=== PATIENT | male | born 1990 | race Caucasian/White ===

== ENCOUNTER 2017-03-30 13:07 | Emergency (ER) | payer BC ==
[~2017-03-30] VITALS: Ht 193 cm; Wt 77.1 kg
[~2017-03-30 13:07] MED LIST: CODACE30 PO; CRUTCH4 USE; IBUP200 PO; IBUP800 PO; NAPR500 PO; PENVK250 PO; PENVK500 PO; RXHYDACE PO; TRAM50 PO; Veetids 500500 MG PO
== END 2017-03-30 13:45 | disposition home or self-care (01) ==
LOC: ER 13:07
DX: R10.9 Unspecified abdominal pain (principal); F17.200 Nicotine dependence, unspecified, uncomplicated
CPT/HCPCS: 99282